=== PATIENT | male | born 1975 | race African-American/Black ===

== ENCOUNTER 2020-08-21 13:02 | Inpatient (IN) | payer MEDICAID ==
[~2020-08-21] VITALS: Ht 182.9 cm; Wt 71.1 kg
[2020-08-21] MEDS ORDERED: Omnipaque-300 100ml vial INJ PRN (13:30)
[2020-08-21 14:06] LABS: BASOPHILS % (AUTO) 3.5 % (0.0-2.0); EOSINOPHILS % (AUTO) 0.8 % (0.0-3.0); HEMATOCRIT 50.4 % (42.0-52.0); HEMOGLOBIN 15.6 G/DL (14.2-18.0); LYMPHOCYTES % (AUTO) 30.5 % (20.0-45.0); MEAN CORPUSCULAR VOLUME 74 FL (80-99); MONOCYTES % (AUTO) 8.3 % (1.0-10.0); NEUTROPHILS % (AUTO) 56.9 % (45.0-75.0); PLATELET COUNT 248 K/UL (150-450); RED BLOOD COUNT 6.85 M/UL (4.70-6.10); RED CELL DISTRIBUTION WIDTH 13.5 % (11.6-14.8); WHITE BLOOD COUNT 4.3 K/UL (4.8-10.8)
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
[2020-08-21 14:31] LABS: APPEARANCE,URINE SLIGHTLY CLOUDY; BILIRUBIN, URINE NEGATIVE (NEGATIVE); COLOR,URINE PALE YELLOW; GLUCOSE, URINE (UA) NEGATIVE (NEGATIVE); KETONES,URINE NEGATIVE (NEGATIVE); LEUKOCYTE ESTERASE ,URINE NEGATIVE (NEGATIVE); NITRITE,URINE NEGATIVE (NEGATIVE); PH,URINE 8 (4.5-8.0); PROTEIN,URINE NEGATIVE (NEGATIVE); UROBILINOGEN,URINE NORMAL MG/DL (0.0-1.0)
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
[2020-08-21 14:43] VITALS: BP 166/85
[2020-08-21 14:46] LABS: ANION GAP 5 mmol/L (5-15); BLOOD UREA NITROGEN 14 mg/dL (7-18); CARBON DIOXIDE 32 MMOL/L (21-32); CHLORIDE 104 MMOL/L (98-107); CREATININE 1.3 MG/DL (0.55-1.30); POTASSIUM 4.8 MMOL/L (3.5-5.1); SODIUM 141 MMOL/L (136-145)
[2020-08-21 14:57] LABS: ALANINE AMINOTRANSFERASE 29 U/L (12-78); ALBUMIN 3.6 G/DL (3.4-5.0); ALBUMIN/GLOBULIN RATIO 0.9 (1.0-2.7); ALKALINE PHOSPHATASE 49 U/L (46-116); ASPARTATE AMINO TRANSFERASE 32 U/L (15-37); BILIRUBIN,TOTAL 0.4 MG/DL (0.2-1.0)
--- NOTE | 2020-08-21 15:07 | NUR ---
Nurse Note: PT went to CT with x-ray tech; IV site patent.
--- NOTE | 2020-08-21 15:16 | NUR ---
Nurse Note: ER PA made aware of pt allergy to iodine and was unable to complete CT with contrast. ER PA ordered CT W/O contrast. Spoke with noel Johnson; informed new information. Pt back from CT.
[2020-08-21 16:18] VITALS: BP 137/94
--- NOTE | 2020-08-21 16:19 | NUR ---
Nurse Note: Pt placed on cardiac montior; HR 50, ER PA aware. Pt stated hx of placemaker placement 17 years ago. Pt a&o x4, answers questions, able to track with eyes, responds to light stimuli. Pt resting in bed. CRE, VRE, MRSA swabs collected and sent to lab. SLIV RT AC. Pt aware of admission. All belongings accounted for, see belongings list. All safety measures met; will continue to [facility].
[2020-08-21 18:05] VITALS: BP 142/99
--- NOTE | 2020-08-21 18:06 | NUR ---
Nurse Note: Pt remains in baseline condition. Pt resting in bed, no signs of distress. Pt denies discomfort. All safety measures met; will continue to monitor.
--- NOTE | 2020-08-21 19:08 | NUR ---
ED Nurse Note: pt resting in bed, vss no ss of distress noted. will continue to monitor.
--- NOTE | 2020-08-21 19:08 | NUR ---
ED Nurse Note: pt sleeping in bed, VSS no ss of distress noted. Will continue to monitor.
[2020-08-21 19:22] VITALS: BP 135/85
--- NOTE | 2020-08-21 19:45 | NUR ---
ED Nurse Note: Report given to JUDITH Ramos to telemetry unit.
--- NOTE | 2020-08-21 19:46 | NUR ---
NURSE NOTES: Received report from JUDITH Lawler
--- NOTE | 2020-08-21 19:55 | NUR ---
ER DISCHARGE NOTE: Patient is cleared to be discharged to telemetry unit per ERMD, pt is aox4, 100% on room air, with stable vital signs. pt was able to verbalize understanding,. pt is able to ambulate with steady gait. pt took all belongings. report given to JUDITH Ramos on telemetry unit. Pt transported to unit on cardiac nurse specialist in stable condition with 1 RN and 1 HVAC TECH. pt took all belongings.
--- NOTE | 2020-08-21 20:00 | NUR ---
NURSE NOTES: [facility] Patient is awake, alert and oriented x 4. Oriented to room and telemetry unit. Ambulatory with steady gait. 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 IV site is on right AC, g-22 saline lock that is patent and intact. Patient has pacemaker on right upper chest. Safety measures are in place, bed in lowest and locked position, side rails up x 2, call light button and bedside table within reach, instructed to call for any assistance needed. Will call MD for admission orders.
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
[2020-08-21 20:30] VITALS: BP 137/80
--- NOTE | 2020-08-21 23:30 | NUR ---
NURSE NOTES: Patient states he's constipated and last bowel movement was 4 days ago (08/18), instructed to increase oral fluid intake. Will inform MD.
[2020-08-22] VITALS: BP 131/77
--- NOTE | 2020-08-22 01:00 | NUR ---
NURSE NOTES: Received an order from MD regarding patient's constipation, Will carry out.
[2020-08-22] MEDS ORDERED: Bisacodyl EC 5mg tab ORAL PRN (01:30)
--- NOTE | 2020-08-22 01:42 | NUR ---
NURSE NOTES: Patient's troponin level came back and it's trending up, from 0.076, it's now 0.089. Upon assessment, patient is sleeping, no complaints made at this time. Next blood drawn for troponin is 0900. Informed Dr. España, awaiting for call back. Will continue to monitor.
[2020-08-22 04:00] VITALS: BP 151/94
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
[2020-08-22] MEDS: Nitroglycerin 2% oint pkt TOPIC SCH ×3 (05:35→18:09)
--- NOTE | 2020-08-22 06:19 | Diagnostic Imaging Report ---
EXAM: CT Abdomen and Pelvis With Intravenous Contrast CLINICAL HISTORY: PAIN TECHNIQUE: Axial computed tomography images of the abdomen and pelvis with intravenous contrast. Sagittal and coronal reformatted images were created and reviewed. CTDI is 4.3 mGy and DLP is 227.9 mGy-cm. One or more of the following dose reduction techniques were used: automated exposure control, adjustment of the mA and/or kV according to patient size, use of iterative reconstruction technique. COMPARISON: No relevant prior studies available. FINDINGS: Limitations: Exam degraded due to Limited amount of intra-abdominal fat, blurring distention between structures. Lung bases: Unremarkable. No consolidation. No effusions. ABDOMEN: Liver: Unremarkable. No suspicious parenchymal lesions Gallbladder and bile ducts: Unremarkable. No calcified stones. No ductal dilation. Pancreas: Unremarkable. No mass. No ductal dilation. Spleen: Unremarkable. No splenomegaly. Adrenals: Unremarkable. No mass. Kidneys and ureters: Unremarkable. No solid mass. No hydronephrosis. Stomach and bowel: Findings suggesting gastroenteritis/colitis, with gastric wall thickening and scattered small bowel air-fluid levels and mild diffuse inflammatory stranding throughout the abdomen and pelvis. Diffuse fecal retention throughout the colon, which may represent constipation versus diarrheal disease. No obstruction. PELVIS: Appendix: No findings to suggest acute appendicitis. Bladder: Unremarkable. No visible stones. Reproductive: Unremarkable as visualized. ABDOMEN and PELVIS: Intraperitoneal space: Possible small volume free fluid/ascites. No free air. Bones/joints: No acute fracture. No dislocation. Soft tissues: Unremarkable. Vasculature: Unremarkable. No abdominal aortic aneurysm. Lymph nodes: Unremarkable. No enlarged lymph nodes. IMPRESSION: 1. Findings suggesting gastroenteritis/colitis, with gastric wall thickening and scattered small bowel air-fluid levels and mild diffuse inflammatory stranding throughout the abdomen and pelvis. 2. Diffuse fecal retention throughout the colon, which may represent constipation versus diarrheal disease. 3. Possible small volume free fluid/ascites.
--- NOTE | 2020-08-22 06:34 | NUR ---
NURSE NOTES: Called pipeline pharmacist and spoke with "Katie" to verify if it's okay for patient to have heparin and aspirin at the same time, and she states that it's okay to have this both since the medications are low dose.
--- NOTE | 2020-08-22 07:40 | NUR ---
NURSE HAND-OFF REPORT: Important Events on Shift: Patient has been resting well the whole shift Patient Status: Patient is awake on bed, plan of care endorsed. Diet: glucerna 1.2 @ 40 cc/hour. Pending Orders: none Pending Results/Labs:none Pending MD notification:none Latest Vital Signs: Temperature 97.9 , Pulse 50 , B/P 151 /94 , Respiratory Rate 16 , O2 SAT 98 , Room Air, O2 Flow Rate . Vital Sign Comment: stabel EKG Rhythm: AV-Paced Rhythm change?: N MD Notified?: N - MD Response: Latest Zhao Fall Score: 20 Fall Risk: Low Risk Safety Measures: Call light Within Reach, Bed Alarm , Side Rails Side Rails x2, Bed position Low and Locked. Fall Precautions: Patient Fall Education Report given to JUDITH Christian.
--- NOTE | 2020-08-22 08:37 | NUR ---
NURSE NOTES: pt in bed AOx4 resting. pt on clear liq. not complaining for N/v or pain. 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 Bed is locked and in lowest position, call light is within reach. will continue to monitor pt.
[2020-08-22 08:48] VITALS: BP 117/75
[2020-08-22] MEDS ORDERED: Aspirin Baby 81mg ORAL SCH (09:00)
--- NOTE | 2020-08-22 09:18 | NUR ---
NURSE NOTES: notified pharmacy pt nitro patch was taken off in order to have 2decho done. per Marquita at pharmacy, it is ok to have new next patch at 12 Addendum: 08/22/20 at 0922 by Anahi Turk RN NURSE NOTES: notified pharmacy pt nitro patch was taken off in order to have 2decho done. per Marquita at pharmacy, it is ok to have new next patch at 1200
[2020-08-22 09:40] LABS: BASOPHILS % (AUTO) 2.9 % (0.0-2.0); EOSINOPHILS % (AUTO) 0.9 % (0.0-3.0); HEMATOCRIT 43.4 % (42.0-52.0); HEMOGLOBIN 13.6 G/DL (14.2-18.0); LYMPHOCYTES % (AUTO) 26.2 % (20.0-45.0); MEAN CORPUSCULAR VOLUME 72 FL (80-99); MONOCYTES % (AUTO) 7.8 % (1.0-10.0); NEUTROPHILS % (AUTO) 62.2 % (45.0-75.0); PLATELET COUNT 250 K/UL (150-450); RED BLOOD COUNT 6.01 M/UL (4.70-6.10); RED CELL DISTRIBUTION WIDTH 13.1 % (11.6-14.8); WHITE BLOOD COUNT 5.7 K/UL (4.8-10.8)
[2020-08-22 09:43] LABS: ANION GAP 3 mmol/L (5-15); BLOOD UREA NITROGEN 10 mg/dL (7-18); CALCIUM 8.5 MG/DL (8.5-10.1); CARBON DIOXIDE 30 MMOL/L (21-32); CHLORIDE 105 MMOL/L (98-107); CREATININE 1.4 MG/DL (0.55-1.30); POTASSIUM 3.9 MMOL/L (3.5-5.1); SODIUM 138 MMOL/L (136-145)
[2020-08-22] MEDS: Heparin 5000 units/ml inj SUBQ SCH ×2 (09:45→21:56)
[2020-08-22] MEDS: Docusate 100mg cap ORAL SCH ×2 (09:45→18:09)
--- NOTE | 2020-08-22 09:57 | NUR ---
Social Work This SW received a consult due to homelessness and substance abuse. This SW met with patient who remains alert/oriented x4, independent. 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 Patient stating he cannot work due to chest pain. Patient is positive for marijuana and amphetamines. This SW encouraged patient to quit, while educating patient regarding the health risks involved from the substances used, in relation to his chest pain and hospitalization. Patient requesting to discharge to a retirement; list of shelters provided (explained to patient the process: patient to choose which retirement, while transportation to be provided). Patient stating he plans to follow up with Social Security to apply for SSI, while expressing concerns he does not have any ID. Patient is from [place] originally and does not have his Social Security Cards. Unsure whether patient is forthcoming regarding all of his information, however. Patient provided with the address for Social Security office location, as needed. SW to follow further, as needed.
[2020-08-22 12:00] VITALS: BP 114/76
--- NOTE | 2020-08-22 13:29 | NUR ---
CASE MANAGEMENT: REVIEW SI: PERMANENT PACEMAKER . HTN . ACUTE MN T 96.1 HR 50 RR 20 BP 151/94 SAT 98% ROOM AIR TROP I 0.076 IS: ASA 81MG QD HEPARIN SUBQ Q12HR NITROGLYCERIN 1INCH TID FLAGYL IV Q8HR NS IVF @ 100ML/HR WITHDRAWAL PRECAUTIONS POSSIBLE PACEMAKER INTERROGATION TELEMETRY UNIT STATUS DCP: PATIENT REPORTS HOMELESSNESS
[2020-08-22] MEDS ORDERED: Sorbitol Solution UD 30ml ORAL ONE (14:30)
[2020-08-22 16:00] VITALS: BP 112/74
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
--- NOTE | 2020-08-22 19:40 | NUR ---
NURSE HAND-OFF REPORT: Important Events on Shift:pt had a BM and pain is less on his stomach Patient Status: full code Diet: clear liquids Pending Orders: Pending Results/Labs: Pending MD notification: Latest Vital Signs: Temperature 98.7 , Pulse 56 , B/P 112 /74 , Respiratory Rate 20 , O2 SAT 98 , Room Air, O2 Flow Rate . Vital Sign Comment: EKG Rhythm: SB Rhythm change?: N MD Notified?: N - MD Response: Latest Zhao Fall Score: 20 Fall Risk: Low Risk Safety Measures: Call light Within Reach, Bed Alarm Zone 2, Side Rails Side Rails x2, Bed position Low and Locked. Fall Precautions: y Yellow Socks y Yellow Gown y Door Sign y Patient Fall Education y Report given to Clyde/ RN.
[2020-08-22 20:00] VITALS: BP 116/65
--- NOTE | 2020-08-22 21:44 | General Progress Note ---
Subjective Allergies: Coded Allergies: IODINE (Verified Allergy, Unknown, 08/21/20) Objective Last 24 Hour Vital Signs Date Time Temp Pulse Resp B/P (MAP) Pulse Ox O2 Delivery O2 Flow Rate FiO2 08/22/20 18:09 112/74 08/22/20 16:00 98.7 63 20 112/74 (87) 98 08/22/20 16:00 56 08/22/20 14:22 98.1 08/22/20 13:45 114/76 08/22/20 12:00 98.1 64 19 114/76 (89) 96 08/22/20 12:00 56 08/22/20 09:00 Room Air 08/22/20 08:48 96.1 20 117/75 (89) 98 08/22/20 08:00 58 08/22/20 05:35 151/94 08/22/20 04:00 97.9 16 151/94 (113) 98 08/22/20 04:00 50 08/22/20 00:04 Room Air 08/22/20 00:00 97.9 16 131/77 (95) 98 08/22/20 00:00 51 Intake and Output 08/21/20 08/22/20 19:00 07:00 Intake Total 1150 ml Output Total 660 ml Balance 490 ml Intake Oral 350 ml IV Total 800 ml Output Urine Total 660 ml # Voids 1 3 Laboratory Tests 08/22/20 00:55: Troponin I 0.089H 08/22/20 09:15: Troponin I 0.076H, White Blood Count 5.7, Red Blood Count 6.01, Hemoglobin 13.6L , Hematocrit 43.4, Mean Corpuscular Volume 72L, Mean Corpuscular Hemoglobin 22.6L, Mean Corpuscular Hemoglobin Concent 31.4L, Red Cell Distribution Width 13.1, Platelet Count 250, Mean Platelet Volume 6.9, Neutrophils (%) (Auto) 62.2, Lymphocytes (%) (Auto) 26.2, Monocytes (%) (Auto) 7.8, Eosinophils (%) (Auto) 0.9, Basophils (%) (Auto) 2.9H, Sodium Level 138, Potassium Level 3.9, Chloride Level 105, Carbon Dioxide Level 30, Anion Gap 3L, Blood Urea Nitrogen 10, Creatinine 1.4H, Estimat Glomerular Filtration Rate > 60, Glucose Level 97, Calcium Level 8.5 08/22/20 16:30: Troponin I 0.067H Height (Feet): 6 Height (Inches): 0.00 Weight (Pounds): 185 Assessment/Plan Assessment/Plan: Assessment - acute constipation - abdominal discomfort - no fever or WBC Recommendations - laxatives - follow exam and symptoms - outpatient colonoscopy Thank you MD Dinora Morse Payman MD Aug 22, 2020 21:44
[2020-08-23] VITALS: BP 119/68
--- NOTE | 2020-08-23 01:00 | Consultation ---
DATE OF CONSULTATION: 08/22/2020 GASTROENTEROLOGY CONSULTATION CONSULTING PHYSICIAN: Torri Farias MD CHIEF COMPLAINT: I was asked to see this patient by Dr. Aramis Worley for evaluation of abdominal issues. HISTORY OF PRESENT ILLNESS: The patient is a 45-year-old man who complains of a 5-day history of having difficulty with his bowels. He says that he has not had a bowel movement for about 4 or 5 days, indicated that he has an inability to eat. He has not had nausea or vomiting and no hematochezia. He has never had endoscopy or colonoscopy. He denies hematochezia. PAST MEDICAL HISTORY: History of congestive heart failure. FAMILY HISTORY: Positive for cancer in mother. SOCIAL HISTORY: The patient is single. He has 2 children. He smokes occasionally. He does not drink alcohol. REVIEW OF SYSTEMS: Negative. PHYSICAL EVALUATION: GENERAL: A well-developed, well-nourished man, seen in his room. HEENT: Normocephalic and atraumatic. Sclerae are anicteric. NECK: Supple. CHEST: Clear to auscultation. CARDIOVASCULAR: Revealed regular rate. ABDOMEN: Soft with some mild right lower quadrant tenderness to palpation. EXTREMITIES: Revealed no edema. LABORATORY DATA: Noted. Mean corpuscular volume was low, but RDW was normal. CT scan was noted. ASSESSMENT: This patient has had an acute symptom from 4 to 5 days and some abdominal discomfort. The CT showing a corresponding degree of fecal loading consistent with constipation. There are other findings including thickening of the gastric wall, which is nonspecific and some mild diffuse inflammatory stranding on the abdomen and pelvis. At this time, the patient has normal white count. His bowel sounds are stable. His exam was not concerning. Therefore, I would treat the patient symptomatically. Laxative regimen should be given to clear the bowel. His MCV is low, but it may be more of a thalassemia. We will check an iron panel and check stool occult blood. As an outpatient he can have a colonoscopy to evaluate his colon lining. RECOMMENDATIONS: Per above discussion and per orders written in the chart. Thank you for asking me to participate in the care of this patient. Payman Khorrami, M.D. DR: CYRUS JOB#: [id number] CC: DASH
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
--- NOTE | 2020-08-25 07:32 | Discharge Summary ---
Discharge Summary Discharge Summary _ DATE OF ADMISSION: 08/21/2020 DATE OF DISCHARGE: 08/23/2020 Patient left AGAINST MEDICAL ADVICE REASON FOR ADMISSION: 45 years old male with past medical history of hypertension, pacemaker, CHF, presented to emergency department complaining of severe diffuse abdominal pain with associated nausea and two episodes of dry heaving while attempting to vomit . Symptoms present for two days. Pain reported as 10 out of 10. No BM for 5 days. He denied fever , but reported some chills. He denied blood in the vomitus or stool. Patient denied dark tarry stools. He denied dizziness, headache , neck pain or stiffness. No chest pain of shortness of breath. No low back pain. No urinary frequency, dysuria or hematuria. Upon evaluation patient was bradycardic with heart rate 52 , blood pressure was elevated 172/89. Laboratory work-up revealed stable hemoglobin and hematocrit, no leukocytosis. Stable electrolytes and renal parameters. Troponin 0.076 , pro BNP 107. Telemetry revealed sinus rhythm, no acute ischemic changes. CT scan of the abdomen and pelvis revealed findings suggestive of gastroenteritis/colitis with slight wall thickening and scattered small bowel air-fluid levels and mild diffuse inflammatory stranding throughout the abdomen and pelvis. Diffuse fecal retention throughout the colon . Urine toxicology screen was positive for amphetamine and marijuana. Urinalysis was unremarkable. In emergency department patient received aspirin, Pepcid, antiemetic, bolus of fluid and admitted for further management . CONSULTANTS: business test analyst Dr. Dr. [place] GI specialist Dr. Farias [facility] COURSE: Patient admitted to telemetry floor. Coagulating Bath Operator followed. Serial troponin revealed elevated troponin at the same level range . EKG showed atrial pacing with episodes of AV pacing. Patient was on antiplatelet therapy and topical nitrates. Patient was hydrated. Withdrawal precaution maintained. Echocardiogram demonstrated preserved ejection fraction of 60 to 65% with mild to moderate left ventricular hypertrophy. No evidence of wall motion abnormality. Right ventricular systolic pressure of 35, consistent with borderline mild pulmonary hypertension. DVT and GI prophylaxis provided. Patient was counseled on abstinence from illicit street drugs. Pain management was addressed as needed. Bowel regimen instituted. Supportive care provided. Antiemetic were on board as needed. Patient was able to tolerate diet. GI specialist recommended outpatient colonoscopy. On 08/23 in the evening patient decided to leave AGAINST MEDICAL ADVICE. The risks and consequences of signing AGAINST MEDICAL ADVICE were discussed with patient in detail. Patient verbalized understanding, nevertheless signed AMA form and left. FINAL DIAGNOSES: Elevated troponin/acute myocardial ischemia Possible NSTEMI Amphetamine intoxication Possible colitis Permanent pacemaker Hypertension Acute constipation Abdominal pain I have been assigned to dictate discharge summary for this account. I was not involved in the patient's management. Fang Hines NP Aug 25, 2020 07:32
== END 2020-08-23 02:11 | disposition left against medical advice (07) | DRG 249 ==
LOC: EDBD 13:02 → EMR 14:03 → 2E 15:41 → EDBEDREQ 19:12 → 2E 08-22 13:43
DX: K52.9 Noninfective gastroenteritis and colitis, unspecified (principal); I21.4 Non-ST elevation (NSTEMI) myocardial infarction; Z95.0 Presence of cardiac pacemaker; Z88.8 Allergy status to other drugs, medicaments and biological substances; I10 Essential (primary) hypertension; I27.20 Pulmonary hypertension, unspecified; K59.00 Constipation, unspecified; F15.129 Other stimulant abuse with intoxication, unspecified
CPT/HCPCS: 36415; 74176; 80048; 80053; 80307; 81003; 83690; 83880; 84484; 85025; 87081; 93005; 93306; 96374; 96375; 99285; J2405